=== PATIENT | male | born 1970 | race Caucasian/White ===

== ENCOUNTER 2017-05-24 03:17 | Emergency (ER) | payer OTHER ==
[~2017-05-24] VITALS: Ht 180.3 cm; Wt 78.9 kg
[2017-05-24 03:17] VITALS: BP_SYST 147
[2017-05-24 03:28] VITALS: BP_SYST 147
== END 2017-05-24 03:28 ==
LOC: SED 03:17
DX: Z02.89 Encounter for other administrative examinations (principal); F10.10 Alcohol abuse, uncomplicated
CPT/HCPCS: 99283